=== PATIENT | male | born 1965 | race Caucasian/White ===

== ENCOUNTER 2023-07-16 06:22 | Emergency (ER) | payer OTHER, SELFPAY ==
[2023-07-16 06:28] VITALS: BP 172/98; PULSE 80; O2SAT 98
[2023-07-16 06:31] VITALS: BP 152/83; PULSE 84; RESP 16; TEMP 37; O2SAT 98; BMI 44.0
--- NOTE | 2023-07-16 06:40 | ED.EXTPRO ---
HPI - Extremity Problem General Chief complaint: Extremity Problem Stated complaint: foot lac on varicose vein, EMS controlled bleeding Time Seen by Provider: 07/16/23 06:31 Source: patient Mode of arrival: EMS Limitations: no limitations History of Present Illness ED Provider: Blake Garrison PA-C HPI Narrative: 58 year old male presenting for evaluation of laceration to varicose vein on his left ankle. Nicked it this morning ~545am while putting on socks and began gushing blood. Called EMS who were able to control bleeding with a pressure dressing. Denies pain in the area. Does not see vascular for varicose veins. Works on his feet 70+ hours per week. Not on blood thinners. Complaint: other (ankle laceration of varicose vein) Onset (ago): minute(s) Pain Consistency: constant Location: left and lower extremity Radiation: none Relieving factors: other (pressure dressing) Associated symptoms: denies other symptoms Related Data Allergies Allergy/AdvReac Type Severity Reaction Status Date / Time No Known Allergies Allergy Unverified 07/16/23 06:33 [No Known Allergies*] Review of Systems Review of Systems: Yes all other systems are reviewed and are negative [facility] Social History Social History Advance Directives: No Advance Directives Information Provided: Yes Physical Exam Vital Signs: Vital Signs: Last Vital Signs Temp 98.6 F 07/16/23 06:31 Pulse 84 07/16/23 06:31 Resp 16 07/16/23 06:31 BP 152/83 H 07/16/23 06:31 Pulse Ox 98 07/16/23 06:31 O2 Del Method Room Air 07/16/23 06:31 BMI result Body Mass Index 44.0 Appearance: Alert. Oriented X3. No acute distress. Head: normocephalic, atraumatic. Neck: Normal inspection. Neck supple. Respiratory: No respiratory distress. CVS: Dorsalis pedis pulses normal. Skin: Numerous varicose veins in bilateral lower extremities. Chronic hyperpigmentation of distal left leg, 5mm laceration over varicose vein in left medial ankle w/ active oozing Extremities: No lower extremity edema. No joint swelling. Neuro/psych: Oriented X 3. No motor deficit. No sensory deficit. CN II-XII grossly intact. Normal speech and cognition. Medical Decision Making Medical Decision Making MDM Narrative: 58 year old male presenting for evaluation of laceration to varicose vein on his left ankle, not on blood thinners. Bleeding was successfully controlled by pressure dressing, dermabond and micheline wrap applied. Given numerous varicosities and chronic calf hyperpigmentation patient has chronic venous insufficiency, not currently seen by vascular. will give referral today. wound care/varicose vein education provided. stable for discharge home. Differential Diagnosis Differential Diagnoses: The differential diagnosis associated with the presentation includes Varicose vein, ankle laceration, chronic venous insufficiency, PAD Independent Historian Clinical information obtained from an independent historian. History obtained from or confirmed by: EMS External Record Review External record reviewed: Outpatient record and Prior outpatient labs Chronic Conditions Patient?s care impacted by: Other (PVD, obesity) Procedures Laceration Laceration 1: Site: lower extremity Side (If applicable): left Size (cm): 0.5 Description: linear Depth: simple, single layer Pre-repair: irrigated extensively and deep structures intact Skin layer closed with: other (exofin skin glue and steri strip) Critical Care Time Critical Care Time Critical Care Time: No Discharge Plan Discharge Clinical Impression: Bleeding from varicose vein Patient Disposition: Home, Self-Care Instructions: Venous Insufficiency (DC) Additional Instructions: Skin glue and a steri strip were used to dress the vein that was bleeding - they will come off on their own in a few days, do not peel them off If you have recurrent bleeding, apply pressure for at least 10 minutes. Recommend following up with the vascular specialist for further evaluation and treatment. If you develop new or worsening symptoms call 911 or come back to the ER for further evaluation. Referrals: [facility] [Provider Group] Print Language: Chilean
[2023-07-16 08:28] VITALS: BP 121/75; PULSE 82; RESP 16; TEMP 36.4; O2SAT 95
== END 2023-07-16 08:30 | disposition home or self-care (01) ==
PROVIDERS: Emergency Provider Emergency Medicine
DX: I83.892 Varicose veins of left lower extremity with other complications (principal)
CPT/HCPCS: 12001; 99282

== ENCOUNTER 2023-11-11 16:58 | Emergency (ER) | payer OTHER, SELFPAY ==
[2023-11-11 17:08] VITALS: BP 163/83; PULSE 92; RESP 20; TEMP 36.9; O2SAT 97; BMI 44.2
--- NOTE | 2023-11-11 17:12 | ED_ITS ---
HPI - General Adult General Chief complaint: Skin/Abscess/Foreign Body Stated complaint: Infection L leg Time Seen by Provider: 11/11/23 17:13 Source: patient, RN notes reviewed and old records reviewed Mode of arrival: ambulatory Limitations: no limitations History of Present Illness ED Provider: Jacques HPI narrative: 58-year-old male past medical history significant for obesity, diabetes presents for evaluation of left leg pain and swelling. Patient reports that he works in his feet frequently. He has a darkened area to his left abdi but today it has been red and painful He believes he may have cellulitis has had in the past. He endorses subjective fevers but has not documented any fevers He believes his cat may have scratched his left leg over last few days Related Data Previous Rx's ?Medication ?Instructions ?Recorded cephalexin 500 mg capsule 500 mg PO QID #28 caps 11/11/23 doxycycline hyclate 100 mg tablet 100 mg PO BID #14 tabs 11/11/23 Allergies Allergy/AdvReac Type Severity Reaction Status Date / Time No Known Allergies Allergy Verified 11/11/23 17:08 [No Known Allergies*] Review of Systems 2 Constitutional: Constitutional: Denies body ache(s), Denies chills and Reports fever(s) Cardiovascular: Cardiovascular: Denies chest pain and Denies dyspnea Respiratory: Respiratory: Denies cough and Denies dyspnea Gastrointestinal: Gastrointestinal: Denies abdominal pain Musculoskeletal: Musculoskeletal: Denies back pain Integumentary/Breasts: Skin/Breast: Reports erythema, Denies rash and Denies wounds PMFSH Social History Social History Advance Directives: No Advance Directives Information Provided: No Physical Exam ED Vital Signs: Vital Signs - 24 hr 11/11/23 17:08 11/11/23 17:21 Temperature 98.5 F 98.5 F Pulse Rate 92 92 Respiratory Rate 20 20 Blood Pressure 163/83 H 163/83 H Pulse Oximetry 97 97 Oxygen Delivery Method Room Air Room Air BMI result Body Mass Index 44.2 Const General: healthy appearing, comfortable, no acute distress, alert and awake Nutritional Appearance: well nourished Orientation/consciousness: patient oriented x3 HENMT Head: Yes normocephalic and Yes atraumatic Eyes Eyelids: Yes eyelids normal Conjunctivae: conjunctivae normal Sclerae: sclerae normal Corneas: corneas normal Pupils: Equal, round and reactive pupils present EOM: EOMs intact bilaterally Neck Neck: Yes full ROM Resp Effort & Inspection: normal respiratory effort, able to speak in complete sentences and not labored Skin Other: Mild erythema to the left abdi without significant edema. There are no deep wounds. The left lower extremity is warm to touch General skin exam: no rashes or lesions noted and elasticity normal Neuro General: patient oriented x3 Cranial nerves: Yes Equal, round and reactive pupils present and Yes Bilaterally intact EOM present Cognition (Neuro): normal cognition Extrem Other: Moving all extremities well without any obvious deformities Medical Decision Making Medical Decision Making MDM Narrative: 58-year-old male presents for evaluation of left leg redness and pain starting today. His vital signs are stable, he is afebrile. Plan to treat with antibiotics for cellulitis. Will use cephalexin and doxycycline as the patient is diabetic. There was no evidence of sepsis. There are no deep wounds. Patient was given return precautions Differential Diagnosis Differential Diagnoses: The differential diagnosis associated with the presentation includes Cellulitis Abscess Dermatitis Acute rash Discharge Plan Discharge Clinical Impression: Cellulitis Patient Disposition: Home, Self-Care Instructions: Cellulitis (ED) Additional Instructions: Take both antibiotics as directed. Return for new or worsening symptoms Follow-up with your primary doctor Prescriptions: New cephalexin 500 mg capsule 500 mg PO QID Qty: 28 0RF doxycycline hyclate 100 mg tablet 100 mg PO BID Qty: 14 0RF Interventions: ED Discharge Assessment Last Done: 11/11/23 17:21 Discharge Date/Time: 11/11/23 17:22 Print Language: Polish
[2023-11-11 17:21] VITALS: BP 163/83; PULSE 92; RESP 20; TEMP 36.9; O2SAT 97
== END 2023-11-11 17:22 | disposition home or self-care (01) ==
PROVIDERS: Emergency Provider Internal Medicine
DX: L03.116 Cellulitis of left lower limb (principal); M79.605 Pain in left leg
CPT/HCPCS: 99282; 99283

== ENCOUNTER 2023-11-14 08:10 | Inpatient (IN) | payer OTHER, SELFPAY ==
--- NOTE | ~2023-11-14 | US_ITS ---
EXAMINATION: US TRIPLEX LOWER EXTREMITY, LEFT CLINICAL INFORMATION: Unilateral leg swelling COMPARISON: None available. TECHNIQUE: Color-flow triplex imaging with spectral analysis and compression Doppler were performed on the left lower extremity. FINDINGS: Respiratory variation, normal compression and augmented flow are noted throughout the left lower extremity. The visualized common femoral vein, superficial femoral vein, profunda femoral vein, popliteal vein and midcalf peroneal and posterior tibial venous segments show no evidence of deep venous thrombosis. There is a 3.1 x 1.4 x 1.6cm complex fluid collection in the popliteal fossa. There is reflux in a superficial varicose vein adjacent to the knee. US/US venous duplex LE IMPRESSION: 1. No evidence of deep venous thrombosis involving the left lower extremity. 2. 3.1 cm Mayr's cyst. 3. Superficial venous disease. Electronically signed by: Karen Yin MD 11/14/2023 10:49 AM EDT Workstation: [id number]
[2023-11-14 08:21] VITALS: BP 121/76; PULSE 92; RESP 18; TEMP 36.1; O2SAT 97; BMI 43.2
--- NOTE | 2023-11-14 08:41 | ED.GENADULT ---
HPI - General Adult General Chief complaint: Skin/Abscess/Foreign Body Stated complaint: infected left leg Time Seen by Provider: 11/14/23 08:35 Source: patient Mode of arrival: ambulatory Limitations: no limitations History of Present Illness ED Provider: Lito HPI narrative: 58 yo M PMHx obesity, diabetes seen here on Friday 11/10 for LLE pain and swelling and was diagnosed with and treated for cellulitis now presenting with worsening pain. Patient states the redness is starting to resolve but he is still having trouble walking due to the pain. Pain is worst in the left calf. Patient denies fevers, chills, CP, SOB, N/V/D. Denies recent immobilization prior to symptoms starting on 11/10. Since 11/10, he has been less active and missing work due to pain. Related Data Previous Rx's ?Medication ?Instructions ?Recorded cephalexin 500 mg capsule 500 mg PO QID #28 caps 11/11/23 doxycycline hyclate 100 mg tablet 100 mg PO BID #14 tabs 11/11/23 Allergies Allergy/AdvReac Type Severity Reaction Status Date / Time No Known Allergies Allergy Verified 11/14/23 08:23 [No Known Allergies*] Review of Systems Review of Systems: Yes all other systems are reviewed and are negative PMFSH Past Medical History Attestation statement: The following information was validated with the patient. Source: old records reviewed and nursing notes reviewed Social History Social History Smoked in Last 30 Days: No Use of substances other than those prescribed or required for medical reasons: No Advance Directives: No Advance Directives Information Provided: Yes Do you have a plan to hurt others: No Plan Physical Exam ED Vital Signs: Vital Signs - 24 hr 11/14/23 08:21 11/14/23 10:25 Temperature 97 F 98.0 F Pulse Rate 92 85 Respiratory Rate 18 16 Blood Pressure 121/76 127/74 Pulse Oximetry 97 98 Oxygen Delivery Method Room Air Room Air BMI result Body Mass Index 43.2 VSS Appearance: Alert.? Oriented X3.? No acute distress.?Nontoxic appearing Head: Normocephalic, atraumatic? CVS: Normal heart rate and rhythm.? Pulses normal.?DPs and PTs 1+ b/l Respiratory: No respiratory distress.? Breath sounds normal.? Abdomen: Soft and nontender.? Skin: Venous stasis bronzing on LLE with erythema surrounding the border, warm to touch Extremities: LLE is mildly edematous and ttp.? L calf ttp. 5/5 strength to bilateral upper and lower extremities Neuro: Oriented X 3.? Sensation intact to b/l feet Course Reevaluation(s) Reevaluation #1: CBC unremarkable. Chemistry no acute findings eating intervention. DVT study negative. There is erythema and warmth to the left anterior abdi that seems to be worsening per patient despite antibiotics. Will discuss this with hospitalist for admission. Time: 11:05 Medications Administered Generic Name Dose Route Start Last Admin Trade Name Freq PRN Reason Stop Dose Admin Piperacillin Sod/Tazobactam 50 mls @ 100 mls/hr 11/14/23 11:04 11/14/23 11:22 Sod 3.375 gm/ Sodium Chloride IV 11/14/23 11:33 100 mls/hr ONCE ONE Administration Medical Decision Making Medical Decision Making [facility] Narrative: 58 yo M c/o LLE pain, swelling PE: LLE is mildly edematous and ttp.? L calf ttp. Venous stasis bronzing on LLE with erythema surrounding the border, warm to touch Hx and PE concerning for cellulitis vs. DVT vs. thrombophlebitis. Less likely, threat to limb, compartment syndrome, lymphadenitis, neurovascular compromise, arterial or venous occlusion Plan: labs, US LLE Differential Diagnosis Differential Diagnoses: The differential diagnosis associated with the presentation includes (Hx and PE concerning for cellulitis vs. DVT vs. thrombophlebitis. Less likely, threat to limb, compartment syndrome, lymphadenitis, neurovascular compromise, arterial or venous occlusion) Admission/Observation Consideration of admission/observation: Escalation of care including admission/observation considered Possible Lab Data [facility] Lab Attestation statement: I reviewed the patient's lab results. 11/14/23 09:49 11/14/23 09:49 Labs: Lab Results 11/14/23 Range/Units 09:49 WBC 8.6 (4.8-10.8) X10*3/uL RBC 4.67 (4.60-5.80) X10*6/uL Hgb 13.5 L (14.0-18.0) g/dl Hct 39.1 L (42.0-52.0) % MCV 83.7 (80.0-98.0) fL MCH 28.9 (27.0-33.0) pg MCHC 34.5 (31.0-36.0) g/dl RDW 13.3 (11.0-16.0) % Plt Count 220 (160-400) X10*3/uL MPV 10.3 (9.4-12.4) fL Immature Gran % (Auto) 0.3 (0.0-0.4) % Neut % (Auto) 68.7 (45-73) % Lymph % (Auto) 19.6 L (20-40) % [place] % (Auto) 10.3 (2-11) % Eos % (Auto) 0.6 (0-4) % Baso % (Auto) 0.5 (0-2) % Lymph # (Auto) 1.7 (1.2-4.9) X10*3/uL [place] # (Auto) 0.9 (0.1-1.2) X10*3/uL Eos # (Auto) 0.1 (0.0-0.4) X10*3/uL Baso # (Auto) 0.0 (0.0-0.2) X10*3/uL Abs Immat Gran (auto) 0.03 (0.00-0.03) X10*3/uL Absolute Neuts (auto) 5.9 (2.0-8.3) x10*3/uL Absolute Nucleated RBC 0.000 (0.0-0.012) X10*3/uL Nucleated RBC % (auto) 0.0 (0.0-0.2) /100WBC Sodium 135 (135-145) mmol/L Potassium 3.9 (3.3-5.1) mmol/L Chloride 102 (96-108) mmol/L Carbon Dioxide 25 (22-29) mmol/L Anion Gap 12 (12-20) BUN 15 (9-16) mg/dL Creatinine 0.74 (0.5-1.4) mg/dL Estim Creat Clear Calc 152.2 Estimated GFR > 60 Random Glucose 219 H (60-115) mg/dL Calcium 9.3 (8.4-10.2) mg/dL Magnesium 2.0 (1.6-2.6) mg/dL Total Bilirubin 0.7 (0.0-1.0) mg/dL AST 21 (5-37) U/L ALT 34 (0-40) U/L Alkaline Phosphatase 66 (39-117) U/L Total Protein 7.7 (6.5-8.0) g/dL Albumin 4.0 (3.5-5.0) g/dL Independent Interpretation I performed an independent interpretation of an: Ultrasound (Negative DVT study ) Radiology Impression Discussion of test interpretation with radiology: I have reviewed the radiologist's reading. External Record Review External record reviewed: Outpatient record Chronic Conditions Patient?s care impacted by: Other (obestiy ) Critical Care Time Critical Care Time Critical Care Time: Yes Total Critical Care Time: 35 Attestation: I attest to this time spent taking care of the patient, obtaining history, physical, reviewing labs, imaging, treatment of patients condition +/- specialist/hospitalist consult Discharge Plan Discharge Clinical Impression: Cellulitis Patient Disposition: Still a Patient Prescriptions: No Action cephalexin 500 mg capsule 500 mg PO QID Qty: 28 0RF doxycycline hyclate 100 mg tablet 100 mg PO BID Qty: 14 0RF Print Language: Mauritanian
--- NOTE | 2023-11-14 09:46 | PC.NURSE ---
a&ox4. vss and up to date. pt presents to the ED after recently being seen on friday. dx w/ cellulitis in LLE/prescribed abx. pt represents today w/ increase in pain in the LLE especially located in the back of his left calf. tender/warm to the touch. pt verbalizes increase in pain w/ ambulation which is causing him difficulty completing ADLs and going to work. pt denies hx of DVTs/sob/fever/chills. tech currently bedside obtaining labs. no sob/wob noted. respirations even/unlabored. pt waiting for US to be completed. plan of care ongoing. call dobbins placed within reach.
[2023-11-14 09:54] LABS: MANUAL DIFF FLAG NO
[2023-11-14 09:56] LABS: Basophils Percent Auto 0.5 % (0-2); Eosinophils Absolute Auto 0.1 X10*3/uL (0.0-0.4); Eosinophils Percent Auto 0.6 % (0-4); Hematocrit 39.1 % (42.0-52.0); Hemoglobin 13.5 g/dl (14.0-18.0); Imm Gran Abs Auto 0.03 X10*3/uL (0.00-0.03); Imm Gran Pct Auto 0.3 % (0.0-0.4); Lymphocytes Absolute Auto 1.7 X10*3/uL (1.2-4.9); Lymphocytes Percent Auto 19.6 % (20-40); Mean Corpuscular HGB Conc 34.5 g/dl (31.0-36.0); Mean Corpuscular Hemoglobin 28.9 pg (27.0-33.0); Mean Corpuscular Volume 83.7 fL (80.0-98.0); Mean Platelet Volume 10.3 fL (9.4-12.4); Monocytes Absolute Auto 0.9 X10*3/uL (0.1-1.2); Monocytes Percent Auto 10.3 % (2-11); Neutrophils Absolute Auto 5.9 x10*3/uL (2.0-8.3); Neutrophils Percent Auto 68.7 % (45-73); Platelet Count 220 X10*3/uL (160-400); Red Blood Count 4.67 X10*6/uL (4.60-5.80); Red Cell Distribution Width 13.3 % (11.0-16.0); White Blood Count 8.6 X10*3/uL (4.8-10.8)
--- NOTE | 2023-11-14 10:19 | PC.NURSE ---
ultrasound being completed at this time.
[2023-11-14 10:21] LABS: Alanine Aminotransferase 34 U/L (0-40); Alkaline Phosphatase 66 U/L (39-117); Anion Gap 12 (12-20); Aspartate Amino Transferase 21 U/L (5-37); Bilirubin Total 0.7 mg/dL (0.0-1.0); Blood Urea Nitrogen 15 mg/dL (9-16); Calcium 9.3 mg/dL (8.4-10.2); Carbon Dioxide 25 mmol/L (22-29); Chloride 102 mmol/L (96-108); Creatinine Clr Calc Pharmacy 152.2; Estimated Glomerular Filt Rate > 60; Glucose Random 219 mg/dL (60-115); Potassium 3.9 mmol/L (3.3-5.1); Sodium 135 mmol/L (135-145); Total Protein 7.7 g/dL (6.5-8.0)
[2023-11-14 10:25] VITALS: BP 127/74; PULSE 85; RESP 16; TEMP 36.7; O2SAT 98
[2023-11-14] MEDS: Piperacillin Sodium/Tazobactam 3.375 GM in 0.9 % Sodium Chloride 50 ML IV ×3 (11:22→22:34)
--- NOTE | 2023-11-14 11:22 | PC.NURSE ---
20gIV placed in the left AC - abx administered per provider order. no cultures needed per provider.
[2023-11-14 12:09] VITALS: BP 124/66; PULSE 90; RESP 18; TEMP 37; O2SAT 97
--- NOTE | 2023-11-14 12:17 | PC.NURSE ---
pt speaking w/ hospitalist in regards to plan of care moving forward. pt aware he is being admitted to the hospital. pending admission at this time.
--- NOTE | 2023-11-14 12:29 | PHA.MEDREC ---
Addendum entered by He Wayne RPh 11/14/23 12:51: Reviewed by [facility]. Don't see the antibiotics in pharmacy claims, Mc called pharmacy. Original Note: Pharmacy Consult ? Medication Reconciliation Pharmacy has completed the medication reconciliation. Confirmed medications with patient. He stated he started the Doxycycline 100mg 1 BID and Cephalexin 500mg tab 1 QID on Friday night for 7 days and claims he has about 4 days left. He also has on hand Atorvastatin 10mg and on his bottle it states he was suppose to take 2 tabs po at bedtime and when I said take 2 tabs the patient was surprised that he was suppose to be taking 2 because hes been taking 1 @bedtime all along; Patient states he fills at [facility] in [place] and I called his and they confirmed he has not gotten Atorvastatin filled in over a year. He also states he was on Lovastatin but didn't know the dosing on it and when I called [facility] they have no claims for that medication in their system and patient was adamant it was being filled there.
--- NOTE | 2023-11-14 12:30 | PM.IMHP ---
History of Present Illness Date of Service: 11/14/23 <SHIRIN Solitario Last Filed: 11/14/23 13:47> Attending physician on admission: Shar Mckeon <SHIRIN Solitario Last Filed: 11/14/23 13:47> Chief Complaint: LLE pain and cellulitis <SHIRIN Solitario Last Filed: 11/14/23 13:47> 58 yo M with a pmhx of NIDDM (poorly controlled per pt), obesity and HTN. presented to the ED on 11/10 with LLE edema, erythma and pain, dx'd with cellulitis and sent home with doxycycline 100 BID and cephalexin 500 QID. Now c/o worsening edema, pain with ambulation that improves after a few steps, and increased warmth/erythema. minimal pain at rest. walks a lot at work but has been unable to go do to the pain with walking. no CP, SOB, tachycardia, or additional sx. <SHIRIN Solitario Last Filed: 11/14/23 13:47> Review of Systems Constitutional: Constitutional: Denies fatigue and Denies headache(s) <SHIRIN Solitario Last Filed: 11/14/23 13:47> ENT: Denies dizziness and Denies headache(s) <SHIRIN Solitario Last Filed: 11/14/23 13:47> Cardiovascular: Cardiovascular: Denies chest pain, Denies lightheadedness and Denies dyspnea <SHIRIN Solitario Last Filed: 11/14/23 13:47> Respiratory: Respiratory: Denies cough and Denies dyspnea <SHIRIN Solitario Last Filed: 11/14/23 13:47> Gastrointestinal: Gastrointestinal: Denies constipation, Denies diarrhea, Denies nausea and Denies vomiting <SHIRIN Solitario Last Filed: 11/14/23 13:47> Genitourinary: Genitourinary: Denies dysuria <SHIRIN Solitario Last Filed: 11/14/23 13:47> Musculoskeletal: Comments: pain in LLE with walking <Estelle Herrera PA-C - Last Filed: 11/14/23 13:47> Integumentary/Breasts: Skin/Breast: Reports as per HPI <Estelle Herrera PA-C - Last Filed: 11/14/23 13:47> Neurologic: Denies dizziness and Denies headache(s) <Estelle Herrera PA-C - Last Filed: 11/14/23 13:47> Endocrine: Endocrine: Denies fatigue <Estelle Herrera PA-C - Last Filed: 11/14/23 13:47> [facility] Medical History: Medical History (Updated 11/14/23 @ 12:36 by Estelle Herrera PA-C) HTN (hypertension) Diabetes mellitus <Estelle Herrera PA-C - Last Filed: 11/14/23 13:47> Social History: Social History (Updated 11/14/23 @ 12:52 by Estelle Herrera PA-C) Household Members: Spouse Alcohol intake: never Patient Tobacco Use Status: Never used Tobacco Smoked in Last 30 Days: No Use of substances other than those prescribed or required for medical reasons: No Advance Directives: No Advance Directives Information Provided: Yes Do you have thoughts of harming others: None Do you have a plan to hurt others: No Plan Current occupation: manages package store <Estelle Herrera PA-C - Last Filed: 11/14/23 13:47> Meds Allergies/Adverse reactions: Allergies Allergy/AdvReac Type Severity Reaction Status Date / Time No Known Allergies Allergy Verified 11/14/23 08:23 [No Known Allergies*] <Estelle Herrera PA-C - Last Filed: 11/14/23 13:47> Home medications: Home Medications ?Medication ?Instructions ?Recorded ?Confirmed ?Last Taken ?Type atorvastatin 10 mg tablet 10 mg PO BEDTIME 11/14/23 11/14/23 11/13/23 History lisinopril 20 1 tab PO DAILY 11/14/23 11/14/23 11/14/23 08:00 History mg-hydrochlorothiazide 25 mg tablet metformin 500 mg tablet,extended 1,000 mg PO BID 11/14/23 11/14/23 11/14/23 08:00 History release 24 hr <Estelle Herrera PA-C - Last Filed: 11/14/23 13:47> Physical Exam Vital Signs and Narrative: Vital Signs: Last Vital Signs Temp 98.6 F 11/14/23 12:09 Pulse 90 11/14/23 12:09 Resp 18 11/14/23 12:09 BP 124/66 11/14/23 12:09 Pulse Ox 97 11/14/23 12:09 O2 Del Method Room Air 11/14/23 12:09 BMI result Body Mass Index 43.2 <Estelle Herrera PA-C - Last Filed: 11/14/23 13:47> General: AOx3, no acute distress Resp: CTA bilaterally CVS: S1, S2, RRR GI: soft,+BS, NT, no distention Skin/extremities: Warm, dry. venous stasis dermatitis LLE with surrounding erythema extending superiorly on the posterior aspect, warm and slightly more edema than RLE. RLE without venous stasis dermatitis, erythema or warmth. Psych: Appropriate affect <Estelle Herrera PA-C - Last Filed: 11/14/23 13:47> Results Labs CBC and Chem 7: 11/14/23 09:49 11/14/23 09:49 <Estelle Herrera PA-C - Last Filed: 11/14/23 13:47> Labs: Laboratory Results - last 24 hr 11/14/23 09:49 MCV 83.7 MCH 28.9 MCHC 34.5 RDW 13.3 Plt Count 220 MPV 10.3 Immature Gran % (Auto) 0.3 Neut % (Auto) 68.7 Lymph % (Auto) 19.6 L [place] % (Auto) 10.3 Eos % (Auto) 0.6 Baso % (Auto) 0.5 Lymph # (Auto) 1.7 [place] # (Auto) 0.9 Eos # (Auto) 0.1 Baso # (Auto) 0.0 Abs Immat Gran (auto) 0.03 Absolute Neuts (auto) 5.9 Absolute Nucleated RBC 0.000 Nucleated RBC % (auto) 0.0 Anion Gap 12 Estim Creat Clear Calc 152.2 Estimated GFR > 60 Random Glucose 219 H Calcium 9.3 Magnesium 2.0 Total Bilirubin 0.7 AST 21 ALT 34 Alkaline Phosphatase 66 Total Protein 7.7 Albumin 4.0 <Estelle Herrera PA-C - Last Filed: 11/14/23 13:47> Imaging Radiologist's Impressions: Impressions Venous Duplex 11/14/23 10:15 IMPRESSION: 1. No evidence of deep venous thrombosis involving the left lower extremity. 2. 3.1 cm Mary's cyst. 3. Superficial venous disease. Electronically signed by: Karen Yin MD 11/14/2023 10:49 AM EDT <SHIRIN Solitario Last Filed: 11/14/23 13:47> Assessment and Plan (1) Cellulitis: Status: Acute <SHIRIN Solitario Last Filed: 11/14/23 13:47> 58 yo M with a pmhx of NIDDM (poorly controlled per pt), obesity and HTN with worsening cellulitis worsening cellulitis LLE- failed outpt tx spreading up the leg, WBC normal, no fever, no sepsis - given 1 dose zosyn in ED, will continue - LLE US neg for DVT - admit inpt due to worsening cellulitis and failed outpt tx - monitor CBC HTN - continue lisinopril-HCTZ NIDDM - poorly controlled - hold metformin - SII - check HgbA1C - diabetic diet full code VTE prophy: lovenox, hold pneumoboots given pain Pt with worsening cellulitis and failed outpatient treatment with risk factors for progression including poorly controlled DM and chronic venous stasis, therefore, expected to require IV antibiotics for a minimum of 2 midnights, hence he will be admitted as inpatient. <Estelle Herrera PA-C - Last Filed: 11/14/23 13:47> 58 yo M with a pmhx of NIDDM (poorly controlled per pt), obesity and HTN with worsening cellulitis worsening cellulitis LLE- failed outpt tx spreading up the leg, WBC normal, no fever, no sepsis - given 1 dose zosyn in ED, will continue - LLE US neg for DVT - admit inpt due to worsening cellulitis and failed outpt tx - monitor CBC HTN - continue lisinopril-HCTZ NIDDM - poorly controlled - hold metformin - SII - check HgbA1C - diabetic diet full code VTE prophy: lovenox, hold pneumoboots given pain Pt with worsening cellulitis and failed outpatient treatment with risk factors for progression including poorly controlled DM and chronic venous stasis, therefore, expected to require IV antibiotics for a minimum of 2 midnights, hence he will be admitted as inpatient. Attending Attestation: I have personally seen and examined the patient independently (on the date of service as documented by [facility]), reviewed the [facility] history, exam and?MDM and agree with the assessment and plan as?written. 58 yo M presenting with worsening LLE redness and erythema, having failed outpatient treatment for cellulitis. HBA1C > 12 and underlying venous statsis increasing risk factors for progression. No purulent drainage but on exam quiet tender. Erythema in the mid anterior lower leg with extension posteriorly and superiorly; indurated without any fluctuation appreciated. Keflex/doxy as outpatient -- will give IV zosyn and monitor response Anticipated to require 48-72 hours of IV antibiotics. Remainder per [facility] documentation. <Shar Mckeon MD - Last Filed: 11/14/23 14:59> Quality Stroke Does the patient have a stroke diagnosis?: No <Estelle Herrera PA-C - Last Filed: 11/14/23 13:47> VTE Prior VTE?: No <Estelle Herrera PA-C - Last Filed: 11/14/23 13:47> VTE Risk Level:: Medical - moderate - high <Estelle Herrera PA-C - Last Filed: 11/14/23 13:47> VTE Device Contraindication: Treatment Not Tolerated <Estelle Herrera PA-C - Last Filed: 11/14/23 13:47> VTE Drug Contraindication: N/A - Med Ordered <Estelle Herrera PA-C - Last Filed: 11/14/23 13:47>
[2023-11-14 12:55] LABS: Estimated Average Glucose 301 mg/dL; Hemoglobin A1C 360.1809 umol/L; Hemoglobin A1c % 12.1 % (<6.0); Total Hemoglobin (HGBA1C) 3312.0882 umol/L
[2023-11-14] MEDS: Enoxaparin Sodium 40 MG/0.4 ML SYRINGE SUBCUT (13:56)
[2023-11-14 15:11] VITALS: BP 139/75; PULSE 89; RESP 18; TEMP 36.6; O2SAT 97
[2023-11-14 16:12] LABS: Glucose, Whole Blood 220 mg/dL (60-115)
[2023-11-14] MEDS: Insulin Lispro 100 UNIT/ML 3 ML VIAL SUBCUT ×2 (17:06→20:24)
[2023-11-14] MEDS: 0.9 % Sodium Chloride Flush 3 ML SYRINGE IVFLUSH ×2 (17:16→20:27)
[2023-11-14 19:44] VITALS: BP 150/79; PULSE 89; RESP 18; TEMP 36.3; O2SAT 95
[2023-11-14 19:56] LABS: Glucose, Whole Blood 182 mg/dL (60-115)
[2023-11-14] MEDS: Atorvastatin Calcium 10 MG TABLET PO (20:24)
[2023-11-14] MEDS: Acetaminophen 325 MG TABLET 650 MG PO (22:34)
[2023-11-14] MEDS: Melatonin 3 MG TABLET 6 MG PO (22:34)
[2023-11-15 03:20] VITALS: BP 130/63; PULSE 80; RESP 20; TEMP 36.6; O2SAT 92
[2023-11-15] MEDS: Piperacillin Sodium/Tazobactam 3.375 GM in 0.9 % Sodium Chloride 50 ML IV ×4 (05:17→23:44)
[2023-11-15 07:13] LABS: MANUAL DIFF FLAG NO
[2023-11-15 07:26] VITALS: BP 130/79; PULSE 74; RESP 16; TEMP 36.2; O2SAT 98
[2023-11-15 07:26] LABS: Basophils Absolute Auto 0.1 X10*3/uL (0.0-0.2); Basophils Percent Auto 0.7 % (0-2); Eosinophils Absolute Auto 0.1 X10*3/uL (0.0-0.4); Eosinophils Percent Auto 1.2 % (0-4); Hematocrit 36.9 % (42.0-52.0); Hemoglobin 12.7 g/dl (14.0-18.0); Imm Gran Abs Auto 0.04 X10*3/uL (0.00-0.03); Imm Gran Pct Auto 0.6 % (0.0-0.4); Lymphocytes Absolute Auto 1.7 X10*3/uL (1.2-4.9); Lymphocytes Percent Auto 23.8 % (20-40); Mean Corpuscular HGB Conc 34.4 g/dl (31.0-36.0); Mean Corpuscular Hemoglobin 28.7 pg (27.0-33.0); Mean Corpuscular Volume 83.5 fL (80.0-98.0); Mean Platelet Volume 10.6 fL (9.4-12.4); Monocytes Absolute Auto 0.8 X10*3/uL (0.1-1.2); Neutrophils Absolute Auto 4.6 x10*3/uL (2.0-8.3); Neutrophils Percent Auto 62.7 % (45-73); Platelet Count 217 X10*3/uL (160-400); Red Blood Count 4.42 X10*6/uL (4.60-5.80); Red Cell Distribution Width 13.3 % (11.0-16.0); White Blood Count 7.3 X10*3/uL (4.8-10.8)
--- NOTE | 2023-11-15 07:26 | P.PNIM_ITS ---
Subjective Subjective Date of Service: 11/15/23 Interval History: f/u on celluliis of LLE, redness seems better Physical Exam 2 Vital Signs: Vital Signs: Last Vital Signs Temp 97.8 F 11/15/23 03:20 Pulse 80 11/15/23 03:20 Resp 20 11/15/23 03:20 BP 130/63 11/15/23 03:20 Pulse Ox 92 11/15/23 03:20 O2 Del Method Room Air 11/15/23 03:20 BMI result Body Mass Index 43.2 Const: Other: General: AO X 3, no acute distress Resp: CTA bilateral CVS: S1,S2,RRR GI: +BS, NT, no distention Skin: LLE chronic stasis dermatitis, with superimposed cellulitis Neuro: motor grossly intact Psych: appropriate affect Objective Data Active Medications Acetaminophen (Acetaminophen 325 Mg Tablet) 650 mg PO Q6H PRN PRN Reason: Pain, Mild (Pain Scale 1-3), fever or headache Last Admin: 11/14/23 22:34 Dose: 650 mg Documented By: JULIO Atorvastatin Calcium (Atorvastatin Calcium 10 Mg Tablet) 10 mg PO BEDTIME [facility] Last Admin: 11/14/23 20:24 Dose: 10 mg Documented By: JULIO Calcium Carbonate (Calcium Carbonate 750 Mg Tab.Chew) 750 mg PO Q4H PRN PRN Reason: Heartburn Enoxaparin Sodium (Enoxaparin Sodium 40 Mg/0.4 Ml Syringe) 40 mg SUBCUT Q24H [facility] Last Admin: 11/14/23 13:56 Dose: 40 mg Documented By: NINA Glucose (Glucose Gel 15 Gm Gel..Gram.) 15 gm PO Q15M PRN; Protocol PRN Reason: per Hypoglycemia Standing Ord. Hydrochlorothiazide (Hydrochlorothiazide 25 Mg Tablet) 25 mg PO DAILY [facility] Piperacillin Sod/Tazobactam (Sod 3.375 gm/ Sodium Chloride) 50 mls @ 100 mls/hr IV Q6H [facility] Last Infusion: 11/15/23 05:54 Dose: Infused Documented By: JULIO Dextrose (D10) 250 mls @ 750 mls/hr IV Q15M PRN; Protocol PRN Reason: per Hypoglycemia Standing Ord. Insulin Human Lispro (Insulin Lispro 100 Unit/Ml 3 Ml Vial) 0 unit SUBCUT QIDACHS [facility]; Protocol Last Admin: 11/14/23 20:24 Dose: 2 unit Documented By: JULIO Lisinopril (Lisinopril 20 Mg Tablet) 20 mg PO DAILY [facility] Magnesium Hydroxide (Milk Of Magnesia 30 Ml Oral.Susp) 30 ml PO DAILY PRN PRN Reason: Constipation Melatonin (Melatonin 3 Mg Tablet) 6 mg PO BEDTIME PRN PRN Reason: Insomnia Last Admin: 11/14/23 22:34 Dose: 6 mg Documented By: JULIO Sodium Chloride (0.9 % Sodium Chloride Flush 3 Ml Syringe) 3 ml IVFLUSH QSHIFT [facility] Last Admin: 11/14/23 20:27 Dose: 3 ml Documented By: JULIO Labs 11/15/23 07:09 11/15/23 06:53 Labs: Laboratory Results - last 24 hr 11/14/23 11/14/23 11/14/23 09:49 16:08 19:51 MCV 83.7 MCH 28.9 MCHC 34.5 RDW 13.3 Plt Count 220 MPV 10.3 Immature Gran % (Auto) 0.3 Neut % (Auto) 68.7 Lymph % (Auto) 19.6 L [place] % (Auto) 10.3 Eos % (Auto) 0.6 Baso % (Auto) 0.5 Lymph # (Auto) 1.7 [place] # (Auto) 0.9 Eos # (Auto) 0.1 Baso # (Auto) 0.0 Abs Immat Gran (auto) 0.03 Absolute Neuts (auto) 5.9 Absolute Nucleated RBC 0.000 Nucleated RBC % (auto) 0.0 Anion Gap 12 Estim Creat Clear Calc 152.2 Estimated GFR > 60 POC Glucose 220 H 182 H Random Glucose 219 H Estimat Average Glucose 301 Hemoglobin A1c % 12.1 H Calcium 9.3 Magnesium 2.0 Total Bilirubin 0.7 AST 21 ALT 34 Alkaline Phosphatase 66 Total Protein 7.7 Albumin 4.0 Assessment and Plan (1) Cellulitis: Status: Acute Plan 58 yo M with a pmhx of NIDDM (poorly controlled per pt), obesity and HTN dc'd in ED on 11/10 with Doxy and Keflex for LLE cellulitis, now worse LLE cellulitis d/t uncontrolled DM, failied outpt Tx - Zosyn started 10/4, add Doxy 11/14 - no DVT -cultures pending HTN - continue lisinopril-HCTZ NIDDM - poorly controlled, A1C 12. Doesn't check sugar at home - restart metformin 1000 bid -add glipizide 2.5 mg today and adjust - SSI -he is declining to go home with insulin - diabetic diet full code VTE prophy: lovenox need for inpt: IV Abx for cellulitis that failed outpatient Quality Stroke Does the patient have a stroke diagnosis?: No VTE Prior VTE?: No VTE Risk Level:: Medical - moderate - high VTE Device Contraindication: Treatment Not Tolerated VTE Drug Contraindication: N/A - Med Ordered
[2023-11-15 07:49] LABS: Anion Gap 14 (12-20); Blood Urea Nitrogen 23 mg/dL (9-16); Calcium 8.8 mg/dL (8.4-10.2); Carbon Dioxide 25 mmol/L (22-29); Chloride 102 mmol/L (96-108); Creatinine Clr Calc Pharmacy 122.4; Estimated Glomerular Filt Rate > 60; Glucose Random 222 mg/dL (60-115); Potassium 3.5 mmol/L (3.3-5.1); Sodium 137 mmol/L (135-145)
[2023-11-15 07:58] LABS: Glucose, Whole Blood 229 mg/dL (60-115)
[2023-11-15] MEDS: Insulin Lispro 100 UNIT/ML 3 ML VIAL SUBCUT ×4 (08:24→21:06)
[2023-11-15] MEDS: hydroCHLOROthiazide 25 MG TABLET PO (08:24)
[2023-11-15] MEDS: lisinopriL 20 MG TABLET PO (08:25)
[2023-11-15] MEDS: 0.9 % Sodium Chloride Flush 3 ML SYRINGE IVFLUSH ×3 (08:25→23:47)
[2023-11-15] MEDS: metFORMIN HCl ER 500 MG TAB.ER.24H 1000 MG PO ×2 (10:24→21:05)
[2023-11-15] MEDS: Doxycycline Monohydrate 100 MG CAPSULE PO ×2 (10:24→21:05)
--- NOTE | 2023-11-15 11:14 | MHC.CM.PN ---
DX Cellulitis RLE. Patient is independent with all functional mobility. He works fulltime. He lives with his . He has an appt scheduled with his PCP 11/23/23. Patient plans to return to work once discharged. DP home self care. His will provide transportation.
[2023-11-15 11:29] LABS: Glucose, Whole Blood 265 mg/dL (60-115)
[2023-11-15] MEDS: Enoxaparin Sodium 40 MG/0.4 ML SYRINGE SUBCUT (11:37)
[2023-11-15 15:08] VITALS: BP 121/58; PULSE 79; RESP 16; TEMP 36.4; O2SAT 97
[2023-11-15 16:07] LABS: Glucose, Whole Blood 191 mg/dL (60-115)
[2023-11-15] MEDS: Acetaminophen 325 MG TABLET 650 MG PO (16:34)
[2023-11-15 18:56] VITALS: BP 123/58; PULSE 83; RESP 16; TEMP 36.3; O2SAT 95
[2023-11-15 20:38] LABS: Glucose, Whole Blood 216 mg/dL (60-115)
[2023-11-15] MEDS: Atorvastatin Calcium 10 MG TABLET PO (21:05)
[2023-11-16 03:15] VITALS: BP 112/65; PULSE 78; RESP 16; TEMP 36.9; O2SAT 98
[2023-11-16] MEDS: Piperacillin Sodium/Tazobactam 3.375 GM in 0.9 % Sodium Chloride 50 ML IV ×2 (05:34→11:38)
[2023-11-16 07:10] VITALS: BP 139/86; PULSE 78; RESP 16; TEMP 36; O2SAT 98
[2023-11-16 07:46] LABS: Glucose, Whole Blood 206 mg/dL (60-115)
[2023-11-16] MEDS: hydroCHLOROthiazide 25 MG TABLET PO (08:08)
[2023-11-16] MEDS: 0.9 % Sodium Chloride Flush 3 ML SYRINGE IVFLUSH (08:08)
[2023-11-16] MEDS: glipiZIDE XL 2.5 MG TAB.ER.24 PO (08:08)
[2023-11-16] MEDS: Insulin Lispro 100 UNIT/ML 3 ML VIAL SUBCUT ×2 (08:08→11:38)
[2023-11-16] MEDS: Doxycycline Monohydrate 100 MG CAPSULE PO (08:08)
[2023-11-16] MEDS: metFORMIN HCl ER 500 MG TAB.ER.24H 1000 MG PO (08:08)
[2023-11-16] MEDS: lisinopriL 20 MG TABLET PO (08:08)
[2023-11-16] MEDS: Acetaminophen 325 MG TABLET 650 MG PO (08:12)
[2023-11-16 11:19] LABS: Glucose, Whole Blood 268 mg/dL (60-115)
--- NOTE | 2023-11-16 11:42 | PM.DS ---
DS: Providers Provider Date of Service: 11/16/23 Date of admission: 11/14/23 13:00 Date of discharge: 11/16/23 Primary care physician: Juan Seay MD Consults: 11/14/23 15:02 Consult to Wound Care Routine Reason for consultation: cellulitis L lower leg DS: Diagnosis Discharge Diagnosis (1) Cellulitis: Status: Acute (2) Uncontrolled type 2 diabetes mellitus with hyperglycemia: Status: Acute (3) Morbid obesity: Status: Acute DS: Summary Hospital Course Hospital Course: From the history and physical by the admitting hospitalist, ASHLEE Herrera, 11/14/23: 58 yo M with a pmhx of NIDDM (poorly controlled per pt), obesity and HTN. presented to the ED on 11/10 with LLE edema, erythma and pain, dx'd with cellulitis and sent home with doxycycline 100 BID and cephalexin 500 QID. Now c/o worsening edema, pain with ambulation that improves after a few steps, and increased warmth/erythema. minimal pain at rest. walks a lot at work but has been unable to go do to the pain with walking. no CP, SOB, tachycardia, or additional sx. He was admitted to the medical-surgical unit and treated with IV piperacillin-tazobactam plus PO doxycycline. He improved clinically. No evidence of DVT. He was discharged on 5 days of doxycycline monohydrate and amoxicillin-clavulanate. A1c was 12, but he declined basal insulin therapy. Glipizide was added to metformin and he will follow up with his PCP as scheduled 11/23/23 to discuss additional therapy. The importance of glycemic control was counseled. Time Attestation Discharge Coordination Time (in mins): 35 Quality: Safe Use of Opioids Does Pt have an Active Cancer Diagnosis on the Problem List?: No Quality: Stroke Does the patient have a stroke diagnosis?: No Physical Exam Vital Signs: Vital Signs: Last Vital Signs Temp 96.8 F 11/16/23 07:10 Pulse 78 11/16/23 07:10 Resp 16 11/16/23 07:10 BP 139/86 11/16/23 07:10 Pulse Ox 98 11/16/23 07:10 O2 Del Method Room Air 11/16/23 07:10 BMI result Body Mass Index 43.2 Gen: in no acute distress HEENT: sclera anicteric, moist mucus membranes Neck: supple Lungs: clear to auscultation bilaterally Heart: regular rate and rhythm, no murmurs Abd: soft, non-tender, non-distended, obese Ext: no edema Skin: warm/well-perfused, LLE abdi with inflammatory hyperpigmentation and peripherally clearing erythema; no purulence or discharge Neuro: alert and oriented x3, no focal findings Psych: appropriate affect DS: Data Data Completed and Pending Completed studies during hospitalization [Text1]: ITS Impressions Venous Duplex 11/14/23 10:15 IMPRESSION: 1. No evidence of deep venous thrombosis involving the left lower extremity. 2. 3.1 cm Mary's cyst. 3. Superficial venous disease. Electronically signed by: Karen Yin MD 11/14/2023 10:49 AM EDT Laboratory Tests 11/14/23 11/14/23 11/14/23 09:49 16:08 19:51 WBC 8.6 RBC 4.67 Hgb 13.5 L Hct 39.1 L MCV 83.7 MCH 28.9 MCHC 34.5 RDW 13.3 Plt Count 220 MPV 10.3 Immature Gran % (Auto) 0.3 Neut % (Auto) 68.7 Lymph % (Auto) 19.6 L [place] % (Auto) 10.3 Eos % (Auto) 0.6 Baso % (Auto) 0.5 Lymph # (Auto) 1.7 [place] # (Auto) 0.9 Eos # (Auto) 0.1 Baso # (Auto) 0.0 Abs Immat Gran (auto) 0.03 Absolute Neuts (auto) 5.9 Absolute Nucleated RBC 0.000 Nucleated RBC % (auto) 0.0 Sodium 135 Potassium 3.9 Chloride 102 Carbon Dioxide 25 Anion Gap 12 BUN 15 Creatinine 0.74 Estim Creat Clear Calc 152.2 Estimated GFR > 60 POC Glucose 220 H 182 H Random Glucose 219 H Estimat Average Glucose 301 Hemoglobin A1c % 12.1 H Calcium 9.3 Magnesium 2.0 Total Bilirubin 0.7 AST 21 ALT 34 Alkaline Phosphatase 66 Total Protein 7.7 Albumin 4.0 11/15/23 11/15/23 11/15/23 06:53 07:09 07:46 WBC 7.3 RBC 4.42 L Hgb 12.7 L Hct 36.9 L MCV 83.5 MCH 28.7 MCHC 34.4 RDW 13.3 Plt Count 217 MPV 10.6 Immature Gran % (Auto) 0.6 H Neut % (Auto) 62.7 Lymph % (Auto) 23.8 [place] % (Auto) 11.0 Eos % (Auto) 1.2 Baso % (Auto) 0.7 Lymph # (Auto) 1.7 [place] # (Auto) 0.8 Eos # (Auto) 0.1 Baso # (Auto) 0.1 Abs Immat Gran (auto) 0.04 H Absolute Neuts (auto) 4.6 Absolute Nucleated RBC 0.000 Nucleated RBC % (auto) 0.0 Sodium 137 Potassium 3.5 Chloride 102 Carbon Dioxide 25 Anion Gap 14 BUN 23 H Creatinine 0.92 Estim Creat Clear Calc 122.4 Estimated GFR > 60 POC Glucose 229 H Random Glucose 222 H Estimat Average Glucose Hemoglobin A1c % Calcium 8.8 Magnesium Total Bilirubin AST ALT Alkaline Phosphatase Total Protein Albumin 11/15/23 11/15/23 11/15/23 11:25 15:58 20:26 WBC RBC Hgb Hct MCV MCH MCHC RDW Plt Count MPV Immature Gran % (Auto) Neut % (Auto) Lymph % (Auto) [place] % (Auto) Eos % (Auto) Baso % (Auto) Lymph # (Auto) [place] # (Auto) Eos # (Auto) Baso # (Auto) Abs Immat Gran (auto) Absolute Neuts (auto) Absolute Nucleated RBC Nucleated RBC % (auto) Sodium Potassium Chloride Carbon Dioxide Anion Gap BUN Creatinine Estim Creat Clear Calc Estimated GFR POC Glucose 265 H 191 H 216 H Random Glucose Estimat Average Glucose Hemoglobin A1c % Calcium Magnesium Total Bilirubin AST ALT Alkaline Phosphatase Total Protein Albumin 11/16/23 11/16/23 07:16 11:01 WBC RBC Hgb Hct MCV MCH MCHC RDW Plt Count MPV Immature Gran % (Auto) Neut % (Auto) Lymph % (Auto) [place] % (Auto) Eos % (Auto) Baso % (Auto) Lymph # (Auto) [place] # (Auto) Eos # (Auto) Baso # (Auto) Abs Immat Gran (auto) Absolute Neuts (auto) Absolute Nucleated RBC Nucleated RBC % (auto) Sodium Potassium Chloride Carbon Dioxide Anion Gap BUN Creatinine Estim Creat Clear Calc Estimated GFR POC Glucose 206 H 268 H Random Glucose Estimat Average Glucose Hemoglobin A1c % Calcium Magnesium Total Bilirubin AST ALT Alkaline Phosphatase Total Protein Albumin Discharge Plan Discharge Anticipated Discharge Date/Time: 11/16/23 11:33 Patient Disposition: Home, Self-Care Discharge Diagnosis: cellulitis uncontrolled type 2 diabetes Referrals: Juan Seay MD [Primary Care Provider] - 1 Week Discharge Medications: New glipizide 5 mg tablet extended release 24hr 5 mg PO DAILY Qty: 30 0RF amoxicillin-pot clavulanate 875-125 mg tablet 1 tab PO BID Qty: 10 0RF doxycycline monohydrate 100 mg tablet 100 mg PO BID Qty: 10 0RF Continued lisinopril-hydrochlorothiazide 20-25 mg tablet 1 tab PO DAILY metformin 500 mg tablet extended release 24 hr 1,000 mg PO BID atorvastatin 10 mg tablet 10 mg PO BEDTIME Discontinued cephalexin 500 mg capsule 500 mg PO QID Qty: 28 0RF doxycycline hyclate 100 mg tablet 100 mg PO BID Qty: 14 0RF Discharge Orders: Discharge Order (Routine); Ordered 11/16/23 Ordered By: Cali Rodriguez Diet: Diabetic diet Activity on Discharge: As tolerated Stand Alone Forms: Patient Portal Discharge page Print Language: Syriac Care Plan Goals: cure of infection prevention of diabetic complications Health Concerns: cellulitis uncontrolled type 2 diabetes Plan of Treatment: antibiotic treatment: take doxycycline monohydrate 100 mg twice daily PLUS amoxicillin-clavulanate 100 mg twice daily for 5 days diabetes: diabetic diet [avoid sugar + simple starches], exercise, continue metformin, add glipizide 5 mg daily Please follow up with your primary care doctor within 1 week. Return to the hospital if you experience recurrent or worsening symptoms. Assessment: See Discharge Summary.
--- NOTE | 2023-11-16 12:35 | MHC.CM.PN ---
Patient discharged to home self care. His will provide a ride home.
== END 2023-11-16 12:48 | disposition home or self-care (01) | DRG 603 ==
LOC: HO.ED 11:06 → HO.EDOVER 13:31 → HO.S3 13:57
PROVIDERS: Internal Medicine; Physician Assistant; Admitting Provider Physician Assistant; Emergency Provider Student in an Organized Health Care Education/Training Program; PCP Internal Medicine; Visit Provider Family Medicine
DX: L03.116 Cellulitis of left lower limb (principal); I10 Essential (primary) hypertension; I87.2 Venous insufficiency (chronic) (peripheral); E11.65 Type 2 diabetes mellitus with hyperglycemia; Z79.84 Long term (current) use of oral hypoglycemic drugs; Z79.899 Other long term (current) drug therapy
CPT/HCPCS: 36415; 80048; 80053; 82947; 83036; 83735; 85025; 93971; 99222; 99285; J1650; J2543

== ENCOUNTER → 2023-11-14 13:00 | Outpatient (BNV) | payer OTHER, SELFPAY | PROVIDERS: Admitting Provider Physician Assistant; Emergency Provider Student in an Organized Health Care Education/Training Program; PCP Internal Medicine; Visit Provider Internal Medicine | DX: L03.116 Cellulitis of left lower limb (principal); E11.65 Type 2 diabetes mellitus with hyperglycemia; E66.01 Morbid (severe) obesity due to excess calories; Z68.41 Body mass index [BMI] 40.0-44.9, adult | CPT/HCPCS: 99222; 99232; 99239 ==